=== PATIENT | female | born 1960 | race Caucasian/White ===

== ENCOUNTER 2019-09-05 06:05 | Day surgery (SDC) | payer OTHER ==
[~2019-09-05 06:05] MED LIST: ARMOUR THYROID60 M1 PO; MICARDIS80 MG PO; PROMETRIUM200 MG PO
== END 2019-09-05 16:15 | disposition home or self-care (01) ==
LOC: CIR.AMB 06:05 → EDBD 08:30 → CIR.AMB 08:30
DX: N84.0 Polyp of corpus uteri (principal); N84.3 Polyp of vulva

== ENCOUNTER 2019-11-21 07:38 | Outpatient (CLI) | payer OTHER | END 2019-11-21 08:00 | disposition home or self-care (01) | LOC: SONOGRAMA 07:38 | DX: L98.9 Disorder of the skin and subcutaneous tissue, unspecified (principal); R22.30 Localized swelling, mass and lump, unspecified upper limb ==

== ENCOUNTER 2024-03-21 07:22 | Day surgery (SDC) | payer OTHER ==
[2024-03-21] MEDS ORDERED: POVIDONE-IODINE 118 ML BOTT TOP ONE ×2 (12:14→13:15)
[2024-03-21] MEDS ORDERED: KETOROLAC TROMETHAMINE 30 MG VIAL IV ONE (14:15)
[2024-03-21] MEDS ORDERED: ONDANSETRON HCL 2 MG/ML VIAL ONE (18:56)
== END 2024-03-21 21:25 | disposition home or self-care (01) ==
LOC: CIR.AMB 07:22
PROVIDERS: ATTEND Obstetrics & Gynecology
DX: D39.0 Neoplasm of uncertain behavior of uterus (principal); N85.8 Other specified noninflammatory disorders of uterus; D25.0 Submucous leiomyoma of uterus; N95.0 Postmenopausal bleeding; I10 Essential (primary) hypertension; M19.90 Unspecified osteoarthritis, unspecified site